=== PATIENT | male | born 2000 | race Caucasian/White ===

== ENCOUNTER 2023-12-15 19:25 | Emergency (ER) | payer BC, SELFPAY ==
--- NOTE | 2023-12-15 19:26 | DI.US.S_ITS ---
PROCEDURE: US SCROTUM INDICATIONS: LEFT TESTICULAR PAIN X 3 DAYS TECHNIQUE: Real-time scanning was performed of the scrotum and testicles, with image documentation. Color and pulse Doppler interrogation was performed of both testicles. COMPARISON: None. FINDINGS: Right: Testicle is normal in size at 5.3 x 2.6 x 3.3 cm, and homogenous in echotexture. Epididymis is normal in overall size and morphology. No hydrocele or varicoceles. Overlying scrotal skin is normal in thickness. Left: Testicle is normal in size at 5.1 x 2.7 x 3.6 cm, and homogeneous in echotexture. Epididymis is normal in overall size and morphology. No hydrocele or varicoceles. Overlying scrotal skin is normal in thickness. Doppler: Color and pulse Doppler demonstrate normal and symmetric arterial flow in both testicles. IMPRESSION: Normal testicular ultrasound. No evidence of torsion or infection. Dictated by: Adrian Eric M.D. on 12/15/2023 at 20:20 Approved by: Adrian Eric M.D. on 12/15/2023 at 20:21
[2023-12-15 19:39] VITALS: BP 142/66; PULSE 72; RESP 17; TEMP 36.6; O2SAT 99; BMI 23.0
[2023-12-15 20:42] LABS: Appearance Urine UA CLEAR; Bilirubin Urine UA NEGATIVE (NEGATIVE); Color Urine UA YELLOW; Glucose Urine UA NEGATIVE (Negative); Ketones Urine UA NEGATIVE (NEGATIVE); Leukocyte Esterase Urine UA NEGATIVE (NEGATIVE); Nitrite Urine UA NEGATIVE (Negative); Occult Blood Urine UA NEGATIVE (Negative); Protein Urine UA NEGATIVE (Negative); pH Urine UA 7.5 (4.5-8.0)
[2023-12-15 20:51] LABS: Bacteria Urine None Seen; Culture Indicated Urine Cult Not Indicated; RBC Urine None Seen (0-5/HPF); Squamous Epithelial Cell Urine None Seen (0-5/HPF); Urine Volume 10mL (spun); WBC Urine None Seen (0-5/HPF)
--- NOTE | 2023-12-15 21:09 | ED_ITS ---
HPI - Male Genitourinary General Chief complaint: Urogenital-Male Stated complaint: sent by [facility] Time Seen by Provider: 12/15/23 19:26 Source: patient Mode of arrival: Ambulatory History of Present Illness HPI Narrative: 23-year-old male with no reported past medical history presents for 3 days of left testicle pain. Denies accident, injury, dysuria, history of STIs. Pain improved after he stopped wearing boxer briefs Related Data Home Medications Medication Instructions Recorded Confirmed No Known Home Medications 12/15/23 12/15/23 Allergies Allergy/AdvReac Type Severity Reaction Status Date / Time No Known Drug Allergies Allergy Verified 12/15/23 19:44 Review of Systems Review of Systems Narrative: Negative except as noted above Patient History Social History Smoking Status: Never smoker Smoking Status: Never smoker alcohol intake frequency: other Substance Use Type: does not use Exam Initial Vital Signs Initial Vital Signs: Vital Signs Temperature 98 F 12/15/23 19:39 Pulse Rate 72 12/15/23 19:39 Respiratory Rate 17 12/15/23 19:39 Blood Pressure 142/66 H 12/15/23 19:39 Pulse Oximetry 99 12/15/23 19:39 Oxygen Delivery Method Room Air 12/15/23 19:39 Const: Awake, alert, no acute distress, nontoxic appearing : Medical Billing Coordinator present, uncircumcised, testicles normal, no reproducible tenderness to palpation, positive cremasteric reflex Skin: Warm, Dry, intact, no rashes Neuro: AO x3, CN II-XII grossly intact, moves all extremities Psych: affect normal, mood normal, not suicidal, not homicidal Course Orders Ordered: ED Orders 12/15/23 19:26 US scrotum Stat 12/15/23 20:30 UA Complete [Urinalysis and Microscopic] Stat Vital Signs Vital signs: Vital Signs - 8 hr 12/15/23 19:39 12/15/23 21:51 Temperature 98 F 97.7 F Pulse Rate 72 82 Respiratory Rate 17 16 Blood Pressure 142/66 H 134/74 Pulse Oximetry 99 99 Oxygen Delivery Method Room Air Room Air MDM - Male Genitourinary Differential Diagnosis Differential diagnosis: Likely urinary tract infection, epididymitis and inguinal hernia Lab Data Labs: Lab Results 01/30/24 Range/Units 20:30 Urine Color Yellow Urine Appearance Clear Urine pH 7.5 (4.5-8.0) Ur Specific [place] 1.010 (1.000-1.035) Urine Protein Negative (Negative) Urine Glucose (UA) Negative (Negative) g/dL Urine Ketones Negative (NEGATIVE) Urine Occult Blood Negative (Negative) Urine Nitrate Negative (Negative) Urine Bilirubin Negative (NEGATIVE) Urine Urobilinogen 1.0 (0.2) E.U./dL Ur Leukocyte Esterase Negative (NEGATIVE) Urine RBC None seen (0-5/HPF) Urine WBC None seen (0-5/HPF) Ur Squamous Epith Cells None seen (0-5/HPF) Urine Bacteria None seen (None) Ur Culture Indicated? Cult not indicated Vol Urine Centrifuged 10ml (spun) MDM Narrative Medical decision making narrative: 3 days of left testicle pain. There are no physical exam abnormalities, no reproducible tenderness to palpation, cremasteric reflex intact, no hernias. Ultrasound negative for acute findings. Uncertain etiology of patient's symptoms. He was counseled that he may take Tylenol and Motrin as needed for symptoms, he may apply ice and elevate the testicle as needed to help provide relief. Recommended urology follow up if no relief of symptoms. Discharge Plan Departure Patient Disposition: Home Clinical Impression: Pain in left testicle Instructions: DI for Testicular Pain Prescriptions: No Action No Known Home Medications Referrals: Doctor Hampton MD [Primary Care Provider] - Stand Alone Forms: Patient Portal/API
[2023-12-15 21:51] VITALS: BP 134/74; PULSE 82; RESP 16; TEMP 36.5; O2SAT 99
== END 2023-12-15 21:52 | disposition home or self-care (01) ==
PROVIDERS: Emergency Provider Emergency Medicine
DX: N50.812 Left testicular pain (principal)
CPT/HCPCS: 76870; 81001; 93975; 99283